=== PATIENT | female | born 1965 | race Caucasian/White ===

== ENCOUNTER 2017-04-12 06:30 | Inpatient (IN) | payer OTHER ==
[2017-04-11 15:17] VITALS: BMI 50.8
[2017-04-12] MEDS ORDERED: BUPIVACAINE HCL/PF 0.25% (2.5MG/ML) 10 ML VIAL ONE (11:28)
--- NOTE | 2017-04-12 11:42 | HP ---
History & Physical Update - History History: No Change - Physical Physical: No Change - Assessment Assessment: No Change - Plan Plan: No Change (Here today for elective bariatric surgery (lap vertical sleeve gastretomy). This is my first time meeting the patient. I informed her that I will be assisting Dr. Segal. She is fine with it.)
[2017-04-12] MEDS ORDERED: ceFAZolin SODIUM 1 GM VIAL IVPB ONE (14:10)
[2017-04-12] MEDS ORDERED: NEOSTIGMINE METHYLSULFATE 0.5 MG/ML - 10 ML MDV ONE (14:10)
[2017-04-12] MEDS ORDERED: PROPOFOL 20 ML ONE (14:18)
[2017-04-12] MEDS ORDERED: ROCURONIUM BROMIDE 50 MG/5 ML VIAL ONE (14:28)
[2017-04-12] MEDS ORDERED: BUPIVACAINE HCL/PF 0.5% (5MG/ML) 10 ML VIAL ONE (14:59)
[2017-04-12] MEDS ORDERED: HYDROmorphone HCL/PF 1 MG/ML VIAL (FOR PYXIS CHARGING ONLY) ONE (15:00)
[2017-04-12] MEDS ORDERED: BUPIVACAINE HCL/PF 0.5% (5MG/ML) 10 ML VIAL IJ ONE (15:01)
--- NOTE | 2017-04-12 15:34 | OP ---
Operative Note - Note: Operative Date: 04/12/17 Pre-Operative Diagnosis: Morbid Obesity Operation: Laparoscopic vertical sleeve gastrectomy Findings: No leak/obstruction on leak test Post-Operative Diagnosis: Same as Pre-op Surgeon: Uriel Segal Unit Controller: Cj Peace Anesthesia: General Specimens Removed: Greater curvature of the stomach Estimated Blood Loss (mls): 30 Drains & Tubes with Location: 36 Fr Bougie Operative Report Dictated: Yes
--- NOTE | 2017-04-12 15:48 | SURG ---
Surgery [id number] Operator Note [id number] Operator: Cj Peace PA-C Date of Service: 04/12/17 Diagnosis: Morbid obesity Procedure: Laparoscopic vertical sleeve gastrectomy I was present for the entirety of the operative procedure. For further detail, please refer to operative report. Visit type - Case Type Case Type: Scheduled Admission - New patient This patient is new to me today: Yes Date on this admission: 04/12/17
[2017-04-12] MEDS ORDERED: ONDANSETRON 4 MG/2 ML VIAL IVPUSH PRN (15:57)
[2017-04-12] MEDS ORDERED: ACETAMINOPHEN 1000 MG/100 ML VIAL (NON FORMULARY) IVPB ONE (15:57)
[2017-04-12] MEDS ORDERED: LACTATED RINGERS SOLUTION 1,000 ML IV SCH (16:00)
[2017-04-12] MEDS ORDERED: FAMOTIDINE 20 MG/50 ML IVPB 50 ML IVPB ONE (16:01)
[2017-04-12] MEDS ORDERED: FAMOTIDINE 20 MG PREMIXED IVPB IVPB ONE (16:12)
[2017-04-12] MEDS: ONDANSETRON 4 MG/2 ML VIAL IVPB SCH ×4 (16:15→22:55)
[2017-04-12 16:27] LABS: MCH 30.2 pg (25.7-33.7); MCHC 33.9 g/dl (32.0-36.0); MEAN CELL VOLUME 89.1 fl (80-96); PLATELET COUNT 219 K/MM3 (134-434); RDW 13.1 % (11.6-15.6); WHITE BLOOD COUNT 10.5 K/mm3 (4.0-10.0)
[2017-04-12] MEDS: ACETAMINOPHEN 1000 MG/100 ML VIAL (NON FORMULARY) IVPB SCH ×3 (16:27→22:11)
[2017-04-12 16:44] LABS: ALBUMIN 3.6 g/dl (3.4-5.0); ANION GAP 9 (8-16); BILIRUBIN,TOTAL 0.6 mg/dL (0.2-1.0); CALCIUM 8.4 mg/dL (8.5-10.1); CO2 25 mmol/L (21-32); CREATININE 0.6 mg/dL (0.55-1.02); GLUCOSE,RANDOM 119 mg/dL (74-106); SGOT/AST 38 U/L (15-37); SGPT/ALT 42 U/L (12-78); TOT PROT 6.9 g/dl (6.4-8.2)
[2017-04-12 16:45] LABS: ALK PHOS 65 U/L (45-117)
[2017-04-12] MEDS ORDERED: HYDROmorphone HCL CARPU-JECT 2 MG/1 ML DISP.SYRIN ONE (16:53)
[2017-04-12] MEDS: HYDROmorphone HCL CARPU-JECT 1 MG/1 ML DISP.SYRIN IVPUSH PRN (16:55)
[2017-04-12] MEDS: HYDROmorphone HCL CARPU-JECT 1 MG/1 ML DISP.SYRIN IVPB PRN (18:10)
[2017-04-12] MEDS: SODIUM CHLORIDE 1,000 ML IV SCH (18:14)
[2017-04-12] MEDS: METOCLOPRAMIDE HCL INJECTION 10 MG/2 ML VIAL IVPB SCH ×2 (18:16→21:13)
[2017-04-12] MEDS: ENOXAPARIN NA (PORCINE) 40 MG/0.4 ML DISP.SYRIN SQ SCH (21:17)
[2017-04-12] MEDS: FAMOTIDINE 20 MG/50 ML IVPB 50 ML IVPB SCH (22:06)
[2017-04-13] MEDS: HYDROmorphone HCL CARPU-JECT 1 MG/1 ML DISP.SYRIN IVPB PRN ×2 (01:23→07:00)
[2017-04-13] MEDS: SODIUM CHLORIDE 1,000 ML IV SCH ×2 (01:33→17:05)
[2017-04-13] MEDS: METOCLOPRAMIDE HCL INJECTION 10 MG/2 ML VIAL IVPB SCH ×4 (03:28→20:45)
[2017-04-13] MEDS: ACETAMINOPHEN 1000 MG/100 ML VIAL (NON FORMULARY) IVPB SCH ×2 (03:28→09:45)
[2017-04-13] MEDS: ONDANSETRON 4 MG/2 ML VIAL IVPB SCH ×5 (05:41→22:11)
[2017-04-13 07:13] LABS: MCH 30.4 pg (25.7-33.7); MEAN CELL VOLUME 89.4 fl (80-96); MEAN PLT VOLUME 9.4 fl (7.5-11.1); PLATELET COUNT 243 K/MM3 (134-434); RDW 12.8 % (11.6-15.6); WHITE BLOOD COUNT 10.4 K/mm3 (4.0-10.0)
[2017-04-13 07:52] LABS: ALBUMIN 3.8 g/dl (3.4-5.0); ALK PHOS 68 U/L (45-117); ANION GAP 11 (8-16); BILIRUBIN,TOTAL 0.6 mg/dL (0.2-1.0); CALCIUM 8.6 mg/dL (8.5-10.1); CO2 25 mmol/L (21-32); CREATININE 0.7 mg/dL (0.55-1.02); GLUCOSE,RANDOM 89 mg/dL (74-106); SGOT/AST 35 U/L (15-37); SGPT/ALT 43 U/L (12-78); TOT PROT 7.3 g/dl (6.4-8.2)
[2017-04-13] MEDS ORDERED: PROPOFOL 20 ML ONE ×2 (08:02)
[2017-04-13] MEDS ORDERED: ePHEDrine SULFATE 50 MG/1 ML AMPULE ONE (08:02)
[2017-04-13] MEDS ORDERED: LIDOCAINE HCL 2% 100 MG/5 ML DISP.SYRIN ONE (08:02)
[2017-04-13] MEDS ORDERED: NEOSTIGMINE METHYLSULFATE 0.5 MG/ML - 10 ML MDV ONE (08:02)
[2017-04-13] MEDS ORDERED: GLYCOPYRROLATE 0.2 MG/1 ML VIAL ONE (08:02)
[2017-04-13] MEDS ORDERED: PHENYLEPHRINE HCL 10 MG/1 ML SINGLE DOSE VIAL ONE (08:02)
[2017-04-13] MEDS ORDERED: ROCURONIUM BROMIDE 50 MG/5 ML VIAL ONE (08:03)
[2017-04-13] MEDS ORDERED: SUCCINYLCHOLINE CHLORIDE 200 MG/10 ML VIAL ONE (08:05)
--- NOTE | 2017-04-13 08:54 | PN ---
Progress Note (short form) - Note Progress Note: ANESTHESIOLOGY POST-OP CHECK 52F s/p laparoscopic sleeve gastrectomy under general anesthesia, POD #1. No acute complaints. Denies N/V, pain 2/10. Zuniga in place. Vital Signs Temperature 98.4 F 04/13/17 06:00 Pulse Rate 57 L 04/13/17 06:00 Respiratory Rate 18 04/13/17 06:00 Blood Pressure 138/84 04/13/17 06:00 O2 Sat by Pulse Oximetry (%) 98 04/12/17 22:00 Active Medications Enoxaparin Sodium (Lovenox -) 40 mg SQ BID VINAYAK Last Admin: 04/12/17 21:17 Dose: 40 mg Hydromorphone HCl (Dilaudid Injection -) 1 mg IVPB Q3H PRN PRN Reason: PAIN Last Admin: 04/13/17 07:00 Dose: 1 mg Hydromorphone HCl (Dilaudid Injection -) 0.5 mg IVPUSH [id number] PRN PRN Reason: PAIN Stop: 04/15/17 15:58 Last Admin: 04/12/17 16:55 Dose: 0.5 mg Famotidine/Sodium Chloride (Pepcid 20 Mg Premixed Ivpb -) 50 mls @ 100 mls/hr IVPB BID VINAYAK Last Admin: 04/12/17 22:06 Dose: 100 mls/hr Sodium Chloride (Normal Saline -) 1,000 mls @ 150 mls/hr IV ASDIR VINAYAK Last Admin: 04/13/17 01:33 Dose: 150 mls/hr Lactated Ringer's (Lactated Ringers Solution) 1,000 mls @ 75 mls/hr IV ASDIR VINAYAK Last Admin: 04/12/17 19:10 Dose: Not Given Metoclopramide HCl (Reglan Injection -) 10 mg IVPB Q6H-IV VINAYAK Last Admin: 04/13/17 03:28 Dose: 10 mg Ondansetron HCl (Zofran Injection) 4 mg IVPB Q4HWA [facility] Last Admin: 04/13/17 05:41 Dose: 4 mg Gen: Awake, alert No apparent anesthesia complications. Pain minimal well controlled. Continue management as per primary team.
[2017-04-13] MEDS: ENOXAPARIN NA (PORCINE) 40 MG/0.4 ML DISP.SYRIN SQ SCH ×2 (09:46→21:00)
[2017-04-13] MEDS: FAMOTIDINE 20 MG/50 ML IVPB 50 ML IVPB SCH ×2 (09:46→21:00)
--- NOTE | 2017-04-13 12:19 | SPEC ---
DATE OF OPERATION: 04/12/2017 SURGEON: Justine Segal MD FOLDING MACHINE OPERATOR: STEPH Gongora PREOPERATIVE DIAGNOSIS: Morbid obesity. POSTOPERATIVE DIAGNOSIS: Morbid obesity. PROCEDURE: Laparoscopic vertical sleeve gastrectomy. SPECIMEN: Greater curvature of the stomach. ESTIMATED BLOOD LOSS: 30 mL. DRAINS: None.. ANESTHESIA: GET. REASON FOR PROCEDURE: This is a 52-year-old female who presented to the office for weight loss options. After discussing the different options, she decided to proceed with a laparoscopic, possible open vertical sleeve gastrectomy. The patient was seen by the respective subspecialties and cleared for surgery. The risks and benefits of the procedure were explained. These included bleeding, infection, hernia, WI, DVT, PE, injury to surrounding structures including the liver, colon, bowel, spleen, esophagus, vessel injury, nerve injury, weight regain, gastric leak, staple line leak, sleeve leak, obstruction, vitamin deficiency, hair loss, and as some of the possible complications. The patient understood and signed informed consent. DESCRIPTION OF PROCEDURE: The patient was placed supine on the operating room table. The patient underwent general endotracheal intubation. A Zuniga catheter was inserted. The arms were brought out at 90 degrees and secured. A foot board was placed, and the legs were secured laterally with padding. The abdomen was prepped and draped in the usual sterile fashion. A timeout was performed. An incision was made in the left upper quadrant, and a Veress needle inserted. Pneumoperitoneum was established. Subsequently, the Veress needle was removed, and a 12-mm trocar was placed. The laparoscopic camera was inserted, and inspection of the abdominal cavity was performed. An incision was made in the supraumbilical region, and a 15-mm trocar placed under direct visualization. A 5-mm trocar was then placed in the right upper quadrant, and a 5-mm trocar placed below the left subcostal margin. A stab wound was made in the subxiphoid area, and a Merari clamp inserted and removed to dilate the tract. A Gisel liver retractor was inserted. The post was secured at the bedside by the nursing staff. The patient was placed in steep reverse Trendelenburg position. The Gisel liver retractor was used to secure the liver towards the anterior abdominal wall. The pylorus was identified and 6 cm proximal to it, the lesser sac was entered using the LigaSure device. All lateral attachments to the greater curvature of the stomach including the short gastric vessels were ligated using the LigaSure device toward the gastrosplenic and gastrophrenic ligaments. Once this was done in its entirety, it was confirmed that all tubes within the nasal or oropharyngeal cavity including a temperature probe was removed by Anesthesia. The bougie was then inserted by Anesthesia. Transection of the stomach was then begun staying adjacent to the bougie but away from the angularis. Transection of the stomach was performed near the portion of the stomach where the lesser sac was entered. Two laparoscopic Endo-YUNG black loads were used at this location. Laparoscopic Endo-YUNG purple loads were then used for the remainder of the transection until the greater curvature of the stomach was fully transected. This was done staying close to the bougie. Care was taken to stay away from the angle of His cephalad. The staple line was then inspected. Hemostasis was identified. A leak test was then performed. The stomach was clamped distally to the staple line. Irrigation solution was placed in the left upper quadrant, and air insufflated by Anesthesia into the sleeve. No leaks were identified, and no obstruction was identified. This was done throughout the entirety of the staple line. At this point, the irrigation solution was suctioned, and again hemostasis noted. The 15-mm supraumbilical trocar was then removed, and the specimen removed from the site using a sponge stick lopez. The specimen was inspected, and a Veress needle inserted. The specimen insufflated adequately, and no leak was identified. The staple line was noted to be intact. A Arturo James device was then used to temporarily close the fascia with a 0 Vicryl suture at this site. The 15-mm trocar was then reinserted, and the 12-mm trocar in the left upper quadrant removed. The fascia at this site was then closed using a Arturo James device with a 0 Vicryl suture. Again, hemostasis was noted. The Gisel liver retractor was then removed under direct visualization. Pneumoperitoneum was desufflated, and the fascial sutures were secured. Hemostasis was noted at all incision sites, and Marcaine was injected at all incision sites. All incision sites were closed using 4-0 Biosyn. Sterile dressings were applied. The patient tolerated the procedure well, and was transferred to the recovery room in stable condition with the Zuniga catheter intact. The patient was transferred to telemetry for further monitoring. JUSTINE SEGAL M.D. PILAR/[id number]
[2017-04-13] MEDS ORDERED: oxyCODONE HCL 5 MG TABLET PO PRN (14:18)
[2017-04-13] MEDS ORDERED: ACETAMINOPHEN 325 MG TABLET (FP) PO PRN (14:18)
[2017-04-13] MEDS ORDERED: SODIUM CHLORIDE 1,000 ML IV SCH (14:30)
[2017-04-13] MEDS: HYDROmorphone HCL CARPU-JECT 1 MG/1 ML DISP.SYRIN IVPUSH PRN (14:41)
--- NOTE | 2017-04-13 14:42 | PN ---
Progress Note (short form) - Note Progress Note: POD 1 Laparoscopic vertical sleeve gastrectomy Pain controlled No nausea/vomiting Vital Signs Period Temp Pulse Resp BP Sys/Cruz Pulse Ox Last 24 Hr 97.6 F-98.6 F 46-64 16-20 138-189/68-94 95-98 Abd soft, dressings in place CBC, BMP 04/13/17 05:35 04/13/17 05:35 UGI- no leak/obstruction OOB D/C jenkins/telemetry Clears Plan discharge for tomorrow
--- NOTE | 2017-04-13 14:52 | DS ---
Physical Examination Vital Signs: Vital Signs Temperature 98.3 F 04/13/17 10:00 Pulse Rate 56 L 04/13/17 10:00 Respiratory Rate 18 04/13/17 10:00 Blood Pressure 146/78 04/13/17 10:00 O2 Sat by Pulse Oximetry (%) 98 04/13/17 10:00 Constitutional: Yes: Calm HENT: Yes: WNL Neck: Yes: Supple Cardiovascular: Yes: WNL Respiratory: Yes: Regular Gastrointestinal: Yes: Soft Wound/Incision: Yes: Clean/Dry Neurological: Yes: Alert, Oriented Labs: CBC, BMP 04/13/17 05:35 04/13/17 05:35 Discharge Summary Reason For Visit: MORBID OBESITY Procedures: Principal: Laparoscopic vertical sleeve gastrectomy Condition: Stable - Instructions Diet, Activity, Other Instructions: 132 [facility] Uriel Segal M.D. [address] [place] [address], 5[address] Floor [facility] [address] [facility] [place] [address] Robotic, Bariatric and General Surgery Postoperative Instructions for Bariatric Surgery Activity: Resume normal everyday activity as tolerated. You may walk and climb stairs without any limitation. We encourage you to walk as often as you can Do not lift anything more than 10 pounds for 8 weeks. At that time, you can return to full activity, including the gym, without limitation. Do not drive a motor vehicle while taking prescribes narcotic pain medication. Wound Care: If you have a bandage in place, leave it on for 3 days. At that time you may remove the outer bandage. If there are strips of tape on the skin after removing the outer bandage, leave them in place. They will fall off by themselves. Do not remove them. If there is clear glue on the skin after removing the outer bandage, leave it in place. Do not pick at it or peel it off. You may shower after taking the outer bandage off, 3 days after your surgery. If incisions become red, warm or open, please call the office. Diet: Continue a sugar-free, non-carbonated Clear liquid diet three times a day for the first week-Stage I diet. In addition, you should drink 8 ounces of water every hour. When drinking, sips should be slow and steady, not large and quick. After the first week, call the office to be advanced to the next dietary stage. Do not advance stages until instructed. Your diet will be advanced over the phone each week. Medications/Pain Management: You may resume previous medications unless told otherwise. The pills may be swallowed whole or broken if scored. You may take the prescribed narcotic pain medication as needed. If the narcotic medication is not needed for pain control, you may take Tylenol. Avoid all other pain medications including Advil, Ibuprofen, Motrin, Aspirin, Naprosyn, Aleve, Celebrex. You will receive Pepcid. Please take this twice a day as prescribed. Dizziness,Headaches/Gas Pain: Make sure you are getting enough fluids daily. Patients on diuretics or water pills may need medication adjusted. Some fluids such as broth or Gatorade may help. Gas pains are common in the first few weeks after surgery. At times they can be worse than surgical pain. Walking can help. You can also use Mylanta, Maalox, or Gas-X. Vomiting/Nausea: This may occur if you eat too fast, don't chew, or eat too much. Go back to fluids. If the vomiting or nausea persists, call the office. Constipation/Diarrhea: You may experience a change in bowel habits. Many things affect this, including a decrease in food intake, not enough fluid and taking pain medication. Some people experience diarrhea after the barium swallow in x-ray. If either persist, call the office. Follow up: Call the office at [phone] for an appointment 2 weeks after your surgical procedure. Disposition: HOME - Home Medications Comprehensive Discharge Medication List: Ambulatory Orders Famotidine [Pepcid] 20 mg PO BID #60 tablet 04/12/17 Oxycodone HCl/Acetaminophen [Percocet 5-325 mg Tablet] 1 - 2 tab PO Q6H #28 tab MDD 4 04/12/17
[2017-04-13] MEDS ORDERED: hydrALAZINE HCL 20 MG/ML VIAL IVPUSH PRN (21:38)
[2017-04-13] MEDS ORDERED: hydrALAZINE HCL 20 MG/ML VIAL IVPUSH ONE (21:45)
[2017-04-13] MEDS ORDERED: LOSARTAN POTASSIUM 25 MG TABLET PO ONE (21:45)
[2017-04-14] MEDS: HYDROmorphone HCL CARPU-JECT 1 MG/1 ML DISP.SYRIN IVPB PRN (03:08)
[2017-04-14] MEDS: METOCLOPRAMIDE HCL INJECTION 10 MG/2 ML VIAL IVPB SCH ×2 (03:08→08:01)
[2017-04-14] MEDS: ONDANSETRON 4 MG/2 ML VIAL IVPB SCH ×2 (05:12→09:09)
[2017-04-14] MEDS: ENOXAPARIN NA (PORCINE) 40 MG/0.4 ML DISP.SYRIN SQ SCH (09:09)
[2017-04-14] MEDS: FAMOTIDINE 20 MG/50 ML IVPB 50 ML IVPB SCH (09:10)
--- NOTE | 2017-04-14 09:57 | CON.CARD ---
Consult Consult Specialty:: Cardiology Referred by:: Dr. Segal Reason for Consultation:: HTN, periop cardiac follow up - History of Present Illness Chief Complaint: s/p laparoscopic sleeve gastrectomy History of Present Illness: 52 year old woman with a h/o obesity now s/p laparoscopic sleeve gastrectomy. Pt noted to have uncontrolled HTN post-operatively as well as sinus bradycardia. She was given 1 dose IV Hydralazine last night in addition to Losartan 25mg x 1 last night with improvement in BP overnight. Pt was seen and examined today in nad. states she is feeling well. she has had some post-op pain but it is adequately controlled. no other symptoms. no chest pain or sob. no palpitations, lightheadedness, dizziness. Of note here HR was 50 on her preop exam with a SBP of 158. She followed up with her PMD prior to surgery and she states her BP was approx 140/90. - History Source History Provided By: Patient, Medical Record Limitations to Obtaining History: No Limitations - Past Medical History ...LMP: 03/07/17 ...LMP Comment: noé menopause - Alcohol/Substance Use Hx Alcohol Use: Yes (0-3/month) - Smoking History Smoking history: Former smoker Have you smoked in the past 12 months: Yes Aproximately how many cigarettes per day: 7 If you are a former smoker, when did you quit?: September 2016 - Social History Usual Living Arrangement: With Spouse ADL: Independent History of Recent Travel: No Home Medications - Allergies Allergies/Adverse Reactions: Allergies Allergy/AdvReac Type Severity Reaction Status Date / Time No Known Allergies Allergy Verified 04/11/17 15:08 - Home Medications Home Medications: Ambulatory Orders Famotidine [Pepcid] 20 mg PO BID #60 tablet 04/12/17 Oxycodone HCl/Acetaminophen [Percocet 5-325 mg Tablet] 1 - 2 tab PO Q6H #28 tab MDD 4 04/12/17 Losartan Potassium [Cozaar -] 25 mg PO DAILY #30 tablet 04/14/17 Family Disease History - Family Disease History Family History: Denies Review of Systems - Review of Systems Constitutional: denies: No Symptoms, Chills, Diaphoresis, Fever, Lethargy, Loss of Appetite, Malaise, Night Sweats, Unintentional Wgt. Loss, Weakness, Other Eyes: denies: No Symptoms, Blind Spots, Blurred Vision, Double Vision, Eye Pain , Floaters, Photophobia, Recent Change in Vision, Other HENT: denies: No Symptoms, Difficult Swallowing, Ear Discharge, Ear Pain, Epistaxis, Gingival Bleeding, Hearing Loss, Mouth Swelling, Nasal Congestion, Ocular Prosthesis, Throat Pain, Toothache, Ringing in Ears, Other Neck: denies: No Symptoms, Decreased ROM, Lumps, Pain on Movement, Stiffness, Swollen Glands, Tenderness, Other Cardiovascular: denies: No Symptoms, Chest Pain, Edema, Palpitations, Shortness of Breath, Other Respiratory: denies: No Symptoms, Cough, Exercise Intolerance, Hemoptysis, Orthopnea, PND, Snoring, SOB, SOB on Exertion, Wheezing, Other Gastrointestinal: denies: No Symptoms, Abdominal Pain, Bloating, Constipation, Diarrhea, Dysphagia, Indigestion, Melena, Nausea, Rectal Bleeding, Vomiting, Vomiting Blood, Other Genitourinary: denies: No Symptoms, Burning, Discharge, Dysuria, Flank Pain, Frequency, Hematuria, Incontinence, Lesions, Menses, Pain, Testicular Mass, Testicular Pain, Testicular Swelling, Urgency, Vaginal Bleeding, Other Breasts: denies: No Symptoms Reported, See HPI, Breast Implants, Discharge from Nipple, Lumps, Pain, Skin Changes, Other Musculoskeletal: denies: No Symptoms, Back Pain, Crepitus, Decreased ROM, Extremity Pain, Joint Pain, Joint Swelling, Muscle Pain, Muscle Cramps, Muscle Weakness, Other Integumentary: denies: No Symptoms, Blister, Bruising, Change in Color, Eczema, Erythema, Incision, Lesions, Lump, Pallor, Pruritis, Rash, Wound, Other Neurological: denies: No Symptoms, Change in LOC, Change in Speech, Confusion, Dizziness, Headache, Incoordination, Numbness, Parasthesia, Pre-Existing Deficit , Seizure, Syncope, Tremors, Unsteady Gait, Weakness, Other Endocrine: denies: No Symptoms, Excessive Sweating, Flushing, Increased Hunger, Increased Thirst, Intolerance to Cold, Intolerance to Heat, Unexplained Weight Gain, Unexplained Weight Loss, Other Hematology/Lymphatic: denies: No Symptoms, Easily Bruised, Excessive Bleeding, Swollen Glands, Other Psychiatric: denies: No Symptoms, Altered Sleep Pattern, Anxiety, Depression, Hallucinations, Panic, Paranoia, Suicidal, Other Vital Signs: Vital Signs Temperature 98.9 F 04/14/17 05:00 Pulse Rate 76 04/14/17 05:00 Respiratory Rate 20 04/14/17 05:00 Blood Pressure 133/75 04/14/17 05:00 O2 Sat by Pulse Oximetry (%) 98 04/13/17 21:00 Constitutional: Yes: No Distress, Calm, Obese Eyes: Yes: Conjunctiva Clear, EOM Intact, PERRL HENT: Yes: Atraumatic, Normocephalic Neck: Yes: Supple, Trachea Midline Respiratory: Yes: Regular, CTA Bilaterally. No: Rales, Rhonchi, Wheezes Gastrointestinal: Yes: Normal Bowel Sounds, Tenderness. No: Distention Cardiovascular: Yes: Regular Rate and Rhythm. No: Bradycardia, Tachycardia, Pulse Irregular, Gallop, Rub, Varicosities JVD: No Carotid Bruit: No PMI: Non-Displaced Heart Sounds: Yes: S1, S2. No: Split S2, S3, S4, Clicks, Gallop, Rub, Bruit Murmur: No: Systolic Murmur, Diastolic Murmur Musculoskeletal: Yes: WNL Extremities: Yes: WNL Edema: No Peripheral Pulses WNL: Yes Peripheral Pulses: 2+ Left Doralis Pedis, 2+ Right Dorsalis Pedis Integumentary: Yes: Incision Neurological: Yes: Alert, Oriented Psychiatric: Yes: Alert, Oriented - Other Data Labs, Other Data: CBC, BMP 04/13/17 05:35 04/13/17 05:35 ekg-02/10/17-sinus hung 50bpm, IVCD, possible septal infarct, nonspecific St abnl Imaging - Results Chest X-ray: Report Reviewed, Image Reviewed EKG: Report Reviewed, Image Reviewed Other: Report Reviewed, Image Reviewed (tele-sinus bradycardia, no longer on tele) Assessment/Plan 52 year old woman with a h/o obesity now s/p laparoscopic sleeve gastrectomy. Pt noted to have uncontrolled HTN post-operatively as well as sinus bradycardia. She was given 1 dose IV Hydralazine last night in addition to Losartan 25mg x 1 last night with improvement in BP overnight. Pt was seen and examined today in nad. states she is feeling well. she has had some post-op pain but it is adequately controlled. no other symptoms. no chest pain or sob. no palpitations, lightheadedness, dizziness. Of note here HR was 50 on her preop exam with a SBP of 158. She followed up with her PMD prior to surgery and she states her BP was approx 140/90. Perioperative cardiac risk -pt tolerated procedure well without complication, no additional inpatient work up needed at this point HTN-uncontrolled post op, likely a degree of chronic HTN based on preop evaluation, exacerbated by surgery and post op pain -responded well to 1 dose of IV hydralazine and Losartan 25mg overnight -will cont Losartan 25mg daily (Rx sent to pharmacy) -pt will f/up with her PMD within 1-2 weeks of discharge for re-evaluation of BP -HTN will likely improve as she recovers from surgery and as she loses weight thus medication will need to be adjusted accordingly Bradycardia-sinus -baseline sinus bradycardia preop, dropped to 30-40 post op likely secondary to increased vagal tone and possible FELI (unknown results of sleep study) -pt asymptomatic, no longer on tele -will obtain baseline EKG prior to discharge -pt acceptable for discharge home today from cardiac standpoint, would recc outpatient follow up and consideration for Holter monitor to re-evaluate HR trend
[2017-04-14] MEDS ORDERED: LOSARTAN POTASSIUM 25 MG TABLET PO SCH (10:45)
[2017-04-14 10:52] VITALS: BP 155/84; PULSE 75; TEMP 98.7
--- NOTE | 2017-04-14 12:21 | EKG ---
Test Reason : Blood Pressure : / mmHG Vent. Rate : 063 BPM Atrial Rate : 063 BPM P-R Int : 128 ms QRS Dur : 114 ms QT Int : 480 ms P-R-T Axes : 050 018 000 degrees QTc Int : 491 ms NORMAL SINUS RHYTHM MINIMAL VOLTAGE CRITERIA FOR LVH, MAY BE NORMAL VARIANT NONSPECIFIC ST ABNORMALITY PROLONGED QT ABNORMAL ECG WHEN COMPARED WITH ECG OF 10-FEB-2017 09:55, INCOMPLETE LEFT BUNDLE BRANCH BLOCK IS NO LONGER PRESENT INVERTED T WAVES HAVE REPLACED NONSPECIFIC T WAVE ABNORMALITY IN INFERIOR LEADS Confirmed by AMINA COLEMAN MD ([id number]) on 04/14/2017 12:21:45 PM Referred By: Uriel Segal Confirmed By:AMINA COLEMAN MD
--- NOTE | 2017-04-14 12:54 | PATH ---
Surgical Pathology Report Patient Name: ROSA HASTINGS [facility]. Rec. #: [id number] /Age/Gender: 1965 (Age: 52) / F Account: [id number] Location: 4 PEDS/ADOL Taken: 04/12/2017 Received: 04/13/2017 Reported: 04/14/2017 Physicians: Uriel Segal M.D. Specimen(s) Received GREATER CURVATURE OF STOMACH Clinical History Morbid obesity Final Diagnosis STOMACH, GREATER CURVATURE, LAPAROSCOPIC VERTICAL SLEEVE GASTRECTOMY: PORTION OF STOMACH WITH PATCHY MILD CHRONIC GASTRITIS. IMMUNOSTAIN FOR H. PYLORI IS NEGATIVE FOR ORGANISMS. Electronically Signed David Linares M.D. Gross Description Received in formalin, labeled "greater curvature of stomach" is a 87 gram, 15.0 x 4.0 x 3.0 cm portion of stomach with a stapled margin of resection. The serosa is thompson-diaz with minimal attached fat. The mucosa is thompson-pink with focally flattened folds. No mucosal masses are identified. Flight Coordinator sections are submitted in one cassette. /04/13/2017 [facility]/04/13/2017
== END 2017-04-14 12:51 | disposition home or self-care (01) | DRG 403 ==
LOC: JSAMEDAYSX 06:30 → J4S 17:45
PROVIDERS: ADMIT Surgery; ATTEND Surgery
PROC: 0DB64Z3 Excision of Stomach, Percutaneous Endoscopic Approach, Vertical (ICD-10-PCS; principal; 2017-04-12 13:45)
DX: E66.01 Morbid (severe) obesity due to excess calories (principal); Z68.43 Body mass index [BMI] 50.0-59.9, adult; I97.89 Other postprocedural complications and disorders of the circulatory system, not elsewhere classified; Y83.8 Other surgical procedures as the cause of abnormal reaction of the patient, or of later complication, without mention of misadventure at the time of the procedure; I97.3 Postprocedural hypertension; Y92.230 Patient room in hospital as the place of occurrence of the external cause; I49.8 Other specified cardiac arrhythmias
CPT/HCPCS: 36415; 74241-TC; 80053; 84703; 85027; 86850; 86900; 86901; 88305-TC; 93005; 93010; 94760